=== PATIENT | female | born 1950 | race Caucasian/White ===

== ENCOUNTER 2017-04-11 20:08 | Emergency (ER) | payer MEDICARE, OTHER ==
[~2017-04-11] VITALS: Ht 157.5 cm; Wt 89.8 kg
--- NOTE | ~2017-04-11 | EKG ---
PATIENT: HOLLY JONES UNIT #: [id number] Ventricular Rate: 61 BPM Atrial Rate: 61 BPM P-R Interval: 186 ms QRS Duration: 84 ms Q-T Interval: 420 ms QTC Calculation(Bezet): 422 ms P [place]: 43 degrees Calculated R [place]: 28 degrees Calculated T [place]: -69 degrees Diagnosis Line: Normal sinus rhythm Diagnosis Line: ST and T wave abnormality, consider inferior Diagnosis Line: ischemia Diagnosis Line: ST and T wave abnormality, consider anterolateral Diagnosis Line: ischemia Diagnosis Line: Abnormal ECG Diagnosis Line: No previous ECGs available Diagnosis Line: Confirmed by GABRIEL WALDROP MD ([id number]) on Diagnosis Line: 04/13/2017 11:19:18 AM INTERPRETING MD: PALMA FLOR
[~2017-04-11 20:08] MED LIST: AUGMENTIN875 M1 PO; CENTRUM PO; DILANTIN PO; SYNTHROID PO; VITAMIN D 4001 UDTAB PO
[2017-04-11] MEDS ORDERED: MAGNESIUM400 MG (20:28)
[2017-04-11] MEDS ORDERED: [UNRECOGNIZED DRUG - OTHER] (20:28)
[2017-04-11] MEDS ORDERED: CALCIUM 500 +1 EAC5 (20:28)
[2017-04-11] MEDS ORDERED: FISH OIL300 MG (20:28)
== END 2017-04-11 22:41 | disposition home or self-care (01) ==
LOC: SED 20:08
DX: R25.1 Tremor, unspecified (principal); T50.995A Adverse effect of other drugs, medicaments and biological substances, initial encounter; Z98.51 Tubal ligation status; Z88.2 Allergy status to sulfonamides; Z79.899 Other long term (current) drug therapy
CPT/HCPCS: 93005; 99283